=== PATIENT | female | born 1975 | race Caucasian/White ===

== ENCOUNTER → 2016-05-09 19:11 | Outpatient (CLI) | payer OTHER | END | disposition home or self-care (01) | LOC: D.MAMMO 11:00 | DX: Z12.31 Encounter for screening mammogram for malignant neoplasm of breast (principal) ==

== ENCOUNTER → 2018-06-09 12:00 | Outpatient (CLI) | payer MEDICARE | END | disposition home or self-care (01) | LOC: D.MAMMO 05-19 09:15 | PROVIDERS: ATTEND Family Medicine | DX: Z12.31 Encounter for screening mammogram for malignant neoplasm of breast (principal) ==

== ENCOUNTER → 2019-09-30 08:59 | Outpatient (CLI) | payer BC | END | disposition home or self-care (01) | LOC: D.US 09-24 13:00 → D.MAMMO 09-24 14:15 → D.US 08:59 | PROVIDERS: ATTEND Clinical Nurse Specialist Adult Health | DX: N92.1 Excessive and frequent menstruation with irregular cycle (principal) ==